=== PATIENT | female | born 1995 | race Caucasian/White ===

== ENCOUNTER → 2017-06-22 | Outpatient (REF) | payer OTHER ==
[2017-06-22 22:20] LABS: CHLAMYDIA DNA AMPLIFICATION NEGATIVE (NEGATIVE); GC DNA AMPLIFICATION NEGATIVE (NEGATIVE)
== END ==
LOC: M SFHCWAGY 15:07
DX: Z12.4 Encounter for screening for malignant neoplasm of cervix (principal)

== ENCOUNTER → 2020-06-28 | Outpatient (REF) | payer OTHER | LOC: M SFHCWAGY 16:45 | PROVIDERS: ATTEND Nurse Practitioner Women's Health | DX: Z11.3 Encounter for screening for infections with a predominantly sexual mode of transmission (principal); Z12.4 Encounter for screening for malignant neoplasm of cervix; Z01.419 Encounter for gynecological examination (general) (routine) without abnormal findings ==

== ENCOUNTER → 2022-09-02 | Outpatient (REF) | payer OTHER | LOC: M PLALAB 10:31 | PROVIDERS: ATTEND Nurse Practitioner Family | DX: Z12.4 Encounter for screening for malignant neoplasm of cervix (principal) | CPT/HCPCS: 87624; G0123 ==

== ENCOUNTER → 2022-09-29 | Outpatient (CLI) | payer BC, OTHER | LOC: M WHC 07:15 | PROVIDERS: ATTEND Nurse Practitioner Family | DX: R22.2 Localized swelling, mass and lump, trunk (principal) ==